=== PATIENT | female | born 1935 | race Caucasian/White ===

== ENCOUNTER 2017-06-22 06:14 | Inpatient (IN) | payer OTHER ==
[~2017-06-22] VITALS: Ht 167.6 cm; Wt 87.2 kg
[~2017-06-22 06:14] MED LIST: AMLO10TA2 PO; ASCO10004 PO; ASPI-496 PO; CHOL10003 PO; CIPR500T87 PO; CYAN1TAB29 PO; HYDR12.58 PO; LEVO88TA4 PO; LORA2TAB PO; METR500T PO; OMEG-14 PO; POTA10CA PO
[2017-06-22] MEDS ORDERED: BUPIVACAINE/PF 0.5% ONE (07:00)
[2017-06-22] MEDS ORDERED: TRANEXAMIC ACID 100 MG/ML, 10ML ONE (07:01)
[2017-06-22] MEDS ORDERED: LACTATED RINGERS 1,000 ML IV SCH (07:15)
[2017-06-22] MEDS ORDERED: FENTANYL PF 100 MCG/2ML ONE (07:43)
[2017-06-22] MEDS ORDERED: HYDROmorphone 1 MG/ML, 1ML ONE (07:43)
[2017-06-22] MEDS ORDERED: MIDAZOLAM 1 MG/ML, 2ML ONE (07:43)
[2017-06-22] MEDS ORDERED: EPINEPHRINE 1 MG/ML, 1ML ONE (08:45)
[2017-06-22] MEDS ORDERED: CEFAZOLIN 1,000 MG ONE (09:03)
[2017-06-22] MEDS ORDERED: ONDANSETRON 2MG/ML, 2ML ONE (09:03)
[2017-06-22] MEDS ORDERED: ACETAMINOPHEN 325 MG TABLET PO PRN (09:30)
[2017-06-22] MEDS ORDERED: METOCLOPRAMIDE 5 MG/ML, 2ML IV PRN (09:30)
[2017-06-22] MEDS ORDERED: hydrALAzine 20 MG/ML, 1ML IV PRN (09:30)
[2017-06-22] MEDS ORDERED: OXYcodone 5 MG/5 ML ORAL.SOL UDC PO PRN (09:30)
[2017-06-22] MEDS ORDERED: HYDROmorphone 1 MG/ML, 1ML IV PRN ×2 (09:30→11:00)
[2017-06-22] MEDS ORDERED: LABETALOL 5MG/ML, 20ML IV PRN (09:30)
[2017-06-22] MEDS ORDERED: ONDANSETRON 2MG/ML, 2ML IVPush PRN (09:30)
[2017-06-22] MEDS ORDERED: FENTANYL PF 100 MCG/2ML IV PRN (09:30)
[2017-06-22] MEDS ORDERED: ONDANSETRON 4 MG TABLET PO PRN (11:00)
[2017-06-22] MEDS ORDERED: DIPHENHYDRAMINE 50 MG CAPSULE PO PRN (11:00)
[2017-06-22] MEDS ORDERED: LORazepam 1MG TABLET PO PRN (11:00)
[2017-06-22] MEDS ORDERED: TRANEXAMIC ACID 1,000 MG in SODIUM CHLORIDE 0.9% 100 ML IVPB ONE (11:00)
[2017-06-22] MEDS ORDERED: SENNA/DOCUSATE TABLET PO PRN (11:00)
[2017-06-22] MEDS ORDERED: BISACODYL 10 MG SUPP PR PRN (11:00)
[2017-06-22] MEDS ORDERED: ALUMINUM/MAG/SIMETHICONE 30 ML UDC PO PRN (11:00)
[2017-06-22] MEDS ORDERED: PROMETHAZINE 25 MG/ML, 1ML IM PRN (11:00)
[2017-06-22] MEDS ORDERED: PROMETHAZINE 12.5 MG SUPP PR PRN (11:00)
[2017-06-22] MEDS ORDERED: MAGNESIUM HYDROXIDE 8%, 30ML UDC PO PRN (11:00)
[2017-06-22] MEDS ORDERED: ONDANSETRON 2MG/ML, 2ML IV PRN (11:00)
[2017-06-22] MEDS ORDERED: OXYcodone 5 MG/5 ML ORAL.SOL UDC ONE (11:14)
[2017-06-22] MEDS ORDERED: ACETAMINOPHEN 650 MG/20.3 ML UDC ONE (11:14)
[2017-06-22 12:15] VITALS: BP 140/70
[2017-06-22] MEDS ORDERED: HYDROcodone/APAP 10/325 MG TABLET PO PRN (12:47)
[2017-06-22] MEDS: D5%-0.45% NACL 1,000 ML IV SCH ×3 (12:50→21:21)
[2017-06-22] MEDS: HYDROcodone/APAP 10/325 MG TABLET PO SCH ×4 (12:50→23:39)
[2017-06-22] MEDS ORDERED: KETOROLAC 60 MG/2 ML ONE (14:55)
[2017-06-22] MEDS ORDERED: SODIUM CHLORIDE 0.9% 50 ML ONE (14:56)
[2017-06-22] MEDS ORDERED: ROPIvacaine/PF 0.2%, 20 ML ONE (14:56)
[2017-06-22] MEDS: OXYcodone IR 5MG TABLET PO PRN ×3 (15:27→23:39)
[2017-06-22] MEDS: CEFAZOLIN PMX 2GM/50ML 50 ML IVPB SCH (17:04)
[2017-06-22] MEDS: ASPIRIN 81 MG TABLET EC PO SCH (18:42)
[2017-06-22] MEDS: DOCUSATE 100 MG CAPSULE PO SCH (19:37)
[2017-06-22 20:35] VITALS: BP 124/69
[2017-06-23] MEDS: CEFAZOLIN PMX 2GM/50ML 50 ML IVPB SCH (00:06)
[2017-06-23 00:12] VITALS: BP 142/69
[2017-06-23] MEDS: OXYcodone IR 5MG TABLET PO PRN ×2 (03:59→08:05)
[2017-06-23] MEDS: HYDROcodone/APAP 10/325 MG TABLET PO SCH ×2 (03:59→08:01)
[2017-06-23 04:04] VITALS: BP 129/62
[2017-06-23 04:50] LABS: HEMATOCRIT 37.1 % (34.6-47.8); HEMOGLOBIN 12.3 g/dL (11.7-16.4)
[2017-06-23] MEDS: ASPIRIN 81 MG TABLET EC PO SCH (05:44)
[2017-06-23] MEDS ORDERED: LEVOTHYROXINE 88 MCG TABLET PO SCH (06:00)
[2017-06-23] MEDS ORDERED: DEXAMETHASONE 4 MG/ML, 1ML IVPush SCH (06:00)
[2017-06-23 07:30] VITALS: BP 130/63
[2017-06-23] MEDS: DOCUSATE 100 MG CAPSULE PO SCH (08:05)
[2017-06-23] MEDS: D5%-0.45% NACL 1,000 ML IV SCH (08:05)
[2017-06-23] MEDS ORDERED: POTASSIUM CHLORIDE 10 MEQ TABLET.ER PO SCH (09:00)
[2017-06-23] MEDS ORDERED: MULTIVITAMINS/MINERALS TABLET PO SCH (09:00)
[2017-06-23] MEDS ORDERED: HYDROCHLOROTHIAZIDE 12.5 MG CAPSULE PO SCH (09:00)
[2017-06-23] MEDS ORDERED: AMLODIPINE 5 MG TABLET PO SCH (09:00)
[2017-06-23 10:55] VITALS: BP 143/70
[2017-06-23] MEDS ORDERED: KETOROLAC 30 MG/1 ML IV SCH (11:00)
[2017-06-23] MEDS ORDERED: ASPI-621 PO (11:12)
[2017-06-23] MEDS ORDERED: OXYC5CAP2 PO (11:16)
== END 2017-06-23 11:37 | disposition home or self-care (01) | DRG 470 ==
LOC: ORIP 06:14 → 4NOR 12:06 → DCLOUNGE 06-23 11:01
PROVIDERS: ADMIT Orthopaedic Surgery; ATTEND Orthopaedic Surgery
PROC: 0SRC0J9 Replacement of Right Knee Joint with Synthetic Substitute, Cemented, Open Approach (ICD-10-PCS; principal; 2017-06-22 09:30)
DX: M17.11 Unilateral primary osteoarthritis, right knee (principal); I10 Essential (primary) hypertension; F41.9 Anxiety disorder, unspecified; E03.9 Hypothyroidism, unspecified; Z87.891 Personal history of nicotine dependence; Z88.2 Allergy status to sulfonamides; Z88.8 Allergy status to other drugs, medicaments and biological substances
CPT/HCPCS: 36415; 85014; 85018; C1713; J0171; J0690; J1100; J1170; J1885; J2250; J2405; J2795; J3010; J3490; C1776; J7120

== ENCOUNTER → 2017-11-19 | Outpatient (CLI) | payer OTHER ==
[~2017-11-19] MED LIST changes: +ASPI-621 PO; +OXYC5CAP2 PO
== END | disposition home or self-care (01) ==
LOC: CFH 11:04
PROVIDERS: ATTEND Physician Assistant
DX: M50.323 Other cervical disc degeneration at C6-C7 level (principal); E03.9 Hypothyroidism, unspecified; E59 Dietary selenium deficiency; I10 Essential (primary) hypertension; E78.5 Hyperlipidemia, unspecified; R07.89 Other chest pain
CPT/HCPCS: 72040

== ENCOUNTER → 2017-12-22 | Outpatient (CLI) | payer OTHER ==
[~2017-12-22] MED LIST changes: +REGADENOSON 0.4 MG/5 ML SYRINGE ONE
== END | disposition home or self-care (01) ==
LOC: CFH 10:25
PROVIDERS: ATTEND Physician Assistant
DX: I65.23 Occlusion and stenosis of bilateral carotid arteries (principal); I10 Essential (primary) hypertension; E78.5 Hyperlipidemia, unspecified; I08.0 Rheumatic disorders of both mitral and aortic valves; E03.9 Hypothyroidism, unspecified; E55.9 Vitamin D deficiency, unspecified; M54.2 Cervicalgia
CPT/HCPCS: 93306; 93880; J2785

== ENCOUNTER → 2017-12-23 | Outpatient (CLI) | payer OTHER | LOC: RAD 07:12 | PROVIDERS: ATTEND Physician Assistant | DX: R07.9 Chest pain, unspecified (principal); E03.9 Hypothyroidism, unspecified; E55.9 Vitamin D deficiency, unspecified; I10 Essential (primary) hypertension; E78.5 Hyperlipidemia, unspecified; R07.89 Other chest pain; M54.2 Cervicalgia | CPT/HCPCS: 78452; 93017; A9502; J2785 ==

== ENCOUNTER → 2018-01-18 | Outpatient (CLI) | payer OTHER ==
[~2018-01-18] MED LIST changes: -REGADENOSON 0.4 MG/5 ML SYRINGE ONE
== END | disposition home or self-care (01) ==
LOC: CFH 12:07
PROVIDERS: ATTEND Physician Assistant
DX: M19.012 Primary osteoarthritis, left shoulder (principal); M79.602 Pain in left arm; N64.4 Mastodynia
CPT/HCPCS: 77066